=== PATIENT | female | born 1985 | race Caucasian/White ===

== ENCOUNTER → 2016-06-19 | Outpatient (CLI) | payer MEDICARE, OTHER ==
--- NOTE | 2016-06-19 14:57 | XR ---
Right knee HISTORY: Right knee pain 3 views of the right knee HISTORY: Pain and swelling No comparisons Bone mineralization, joint spaces and alignment are maintained. Suspected joint effusion in the supra patellar region. IMPRESSION: No fracture or dislocation. Correlate for possible internal soft tissue injury. Consider knee MRI.
== END | disposition home or self-care (01) ==
LOC: RADXRMAIN 14:16
PROVIDERS: ATTEND Nurse Practitioner Family
DX: M25.561 Pain in right knee (principal)

== ENCOUNTER 2021-06-25 08:17 | Emergency (ER) | payer MEDICARE, OTHER ==
[2021-06-25 08:22] VITALS: BP 106/64; PULSE 89; RESP 18; TEMP 101.3
--- NOTE | 2021-06-25 08:43 | ED ---
Headache HPI - General Chief Complaint: Headache Stated Complaint: migraine Time Seen by Provider: 06/25/21 08:29 Mode of arrival: ambulatory Limitations: no limitations - History of Present Illness Initial Comments: Patient is a 35-year-old female with past medical history of migraines who presents to the emergency department with chief complaint of headache since last night. Patient reports a bilateral throbbing headache, 10/10 in severity. Patient reports flashes of light and vision blurriness, typical of her migraines. Patient has associated chills. She denies chest pain, shortness of breath, cough, sore throat, rhinorrhea, congestion, body aches, neck pain, and abdominal pain. She denies head trauma. Patient reports she is not COVID-19 vaccinated. No recent sick contacts. - Related Data Home Medications Medication Instructions Recorded Confirmed No Known Home Medications 06/25/21 06/25/21 Allergies Allergy/AdvReac Type Severity Reaction Status Date / Time No Known Allergies Allergy Verified 06/25/21 09:17 Review of Systems ROS Statement: Those systems with pertinent positive or pertinent negative responses have been documented in the HPI. ROS Other: All systems not noted in ROS Statement are negative. Past Medical History Past Medical History: No Reported History Additional Past Medical History / Comment(s): OB history: 3 pregnancies and 3 vaginal deliveries-she says those children stay with family members. Depression, ADHD, low back pain, panic attack, squint. History of Any Multi-Drug Resistant Organisms: None Reported Additional Past Surgical History / Comment(s): Corrective eye surgery. Past Anesthesia/Blood Transfusion Reactions: No Reported Reaction Past Psychological History: ADD/ADHD, Depression Smoking Status: Current every day smoker Past Alcohol Use History: None Reported Past Drug Use History: Marijuana, Prescription Drug Abuse - Past Family History Mother Family Medical History: Cancer (Her mother is 53-year-old history of breast cancer, low back pain and significant orthopedic injuries) Father Family Medical History: Liver Disease (Father is 53-year-old has history of chronic hepatitis C.) Brother(s) Family Medical History: No Reported History (Patient has 2 half-brothers no major medical problems.) Sister(s) Family Medical History: No Reported History (Patient has 2 half-sisters no major medical problems) Son(s) Family Medical History: No Reported History (Patient has 3 boys who are taken away by the state related to her drug behavior.) General Exam Limitations: no limitations General appearance: alert, in no apparent distress Head exam: Present: atraumatic, normocephalic, normal inspection Eye exam: Present: normal appearance, PERRL, EOMI. Absent: scleral icterus, conjunctival injection, periorbital swelling Neck exam: Present: normal inspection. Absent: tenderness, meningismus, lymphadenopathy Respiratory exam: Present: normal lung sounds bilaterally. Absent: respiratory distress, wheezes, rales, rhonchi, stridor Cardiovascular Exam: Present: regular rate, normal rhythm, normal heart sounds. Absent: systolic murmur, diastolic murmur, rubs, gallop, clicks GI/Abdominal exam: Present: soft, normal bowel sounds. Absent: distended, tenderness, guarding, rebound, rigid Neurological exam: Present: alert, oriented X3, CN II-XII intact Psychiatric exam: Present: normal affect, normal mood Skin exam: Present: warm, dry, intact, normal color. Absent: rash Course Vital Signs 06/25/21 08:18 Temperature 101.3 F H Pulse Rate 89 Respiratory 18 Rate Blood Pressure 106/64 O2 Sat by Pulse 99 Oximetry Medical Decision Making - Medical Decision Making This is a 35-year-old female with a chief complaint of headache since last night. The patient is COVID-19 positive. The patient has no white count and looks well. She reports no chance of . She does not meet the criteria for monoclonal antibodies. Patient will be discharged with instructions to quarantine at home and take Tylenol for fever. - Lab Data Lab Results 06/25/21 Range/Units 08:26 Coronavirus (PCR) Detected A (Not Detectd) Disposition Clinical Impression: COVID-19, Acute glaucoma Disposition: HOME SELF-CARE Condition: Good Instructions (If sedation given, give patient instructions): Coronavirus Disease 2019 (COVID-19) Additional Instructions: Return to the emergency department if pt experiences fever refractory to Tylenol/Motrin, severe shortness of breath, difficulty breathing, or chest pain. Is patient prescribed a controlled substance at d/c from ED?: No Referrals: Van Pappas MD [Primary Care Provider] - 1-2 days Time of Disposition: 09:27
[2021-06-25] MEDS ORDERED: METOCLOPRAMIDE 5 MG/ML 2 ML VIAL IVP STA (08:49)
[2021-06-25] MEDS ORDERED: ACETAMINOPHEN TAB 500 MG TAB PO STA (08:49)
[2021-06-25] MEDS ORDERED: diphenhydrAMINE 50 MG/ML 1 ML VIAL IVP STA (08:49)
[2021-06-25] MEDS ORDERED: SODIUM CHLORIDE 0.9% 500 ML 500 ML IV STA (08:49)
== END 2021-06-25 09:40 | disposition home or self-care (01) ==
LOC: EC 08:17
DX: U07.1 COVID-19 (principal); H40.9 Unspecified glaucoma; R51.9 Headache, unspecified; F17.200 Nicotine dependence, unspecified, uncomplicated
CPT/HCPCS: 87635; 99283